=== PATIENT | female | born 1995 | race Caucasian/White ===

== ENCOUNTER 2023-04-17 07:18 | Day surgery (SDC) | payer OTHER ==
[2023-04-17] VITALS (347 sets, daily range): BP systolic 42–171; BP diastolic 25–148
[~2023-04-17] VITALS: Ht 162.6 cm; Wt 81.6 kg
[2023-04-17 09:12] LABS: ALBUMIN 4.5 g/dL (3.2-5.0); ALKALINE PHOSPHATASE 110 u/l (38-126); ANION GAP 12 (6-22 (CALC)); BILIRUBIN, TOTAL 0.6 mg/dL (0.02-1.3); BUN 11 mg/dL (7-17); BUN/CREATININE RATIO 18 (12-20 (CALC)); CARBON DIOXIDE 25 mmol/l (22-30); CHLORIDE 105 mmol/l (95-108); CREATININE 0.6 mg/dL (0.5-1.0); GFR FOR AFR.AMER. > 60 ML/MIN (>=60 (CALC)); GFR OTHER RACES > 60 ML/MIN (>=60 (CALC)); POTASSIUM 3.5 mmol/l (3.5-5.1); SGOT/AST 35 u/l (14-36); SODIUM 139 mmol/l (137-146); TOTAL PROTEIN 8.3 g/dL (6.3-8.2)
[2023-04-17 09:14] LABS: BASO% 0.8 % (0-3); EOS% 6.8 % (0-8); HEMATOCRIT 42.5 % (37.0-47.0); HEMOGLOBIN 13.9 g/dl (12.0-16.0); LYMPH% 39.7 % (15-41); MEAN CELL VOLUME 87.4 fL CALC (80.0-100.0); MEAN CORPUSCULAR HGB 28.6 pG CALC (26.0-32.0); MEAN CORPUSCULAR HGB CONC 32.7 g/dL CAL (32.0-36.0); MONO% 6.5 % (2-13); NEUT# 2.72 thou/uL (2.00-7.15); NEUT% 46.2 % (42-76); RED BLOOD COUNT 4.86 mill/uL (4.20-5.60); RED CELL DISTRI WIDTH 12.5 % (11.5-15.5)
[2023-04-17] MEDS ORDERED: NALTREXONE50 MG PO (15:18)
[2023-04-17] MEDS ORDERED: KLONOPIN2 MG PO (15:19)
[2023-04-17] MEDS ORDERED: CLONIDINE0.1 MG PO (15:19)
[2023-04-18 03:58] VITALS: BP 156/55
[2023-04-18 05:07] LABS: BASO% 0.2 % (0-3); HEMATOCRIT 39.3 % (37.0-47.0); HEMOGLOBIN 12.9 g/dl (12.0-16.0); IMMATURE GRANULOCYTES 0.7 % (0.0-5.0); LYMPH% 7.9 % (15-41); MEAN CELL VOLUME 86.2 fL CALC (80.0-100.0); MEAN CORPUSCULAR HGB 28.3 pG CALC (26.0-32.0); MEAN CORPUSCULAR HGB CONC 32.8 g/dL CAL (32.0-36.0); MONO% 0.6 % (2-13); NEUT# 7.91 thou/uL (2.00-7.15); NEUT% 90.6 % (42-76); RED BLOOD COUNT 4.56 mill/uL (4.20-5.60); RED CELL DISTRI WIDTH 12.5 % (11.5-15.5)
[2023-04-18 05:21] LABS: ALBUMIN 3.9 g/dL (3.2-5.0); ALKALINE PHOSPHATASE 110 u/l (38-126); ANION GAP 12 (6-22 (CALC)); BILIRUBIN, TOTAL 0.6 mg/dL (0.02-1.3); BUN 8 mg/dL (7-17); BUN/CREATININE RATIO 12 (12-20 (CALC)); CARBON DIOXIDE 23 mmol/l (22-30); CHLORIDE 105 mmol/l (95-108); CREATININE 0.6 mg/dL (0.5-1.0); GFR FOR AFR.AMER. > 60 ML/MIN (>=60 (CALC)); GFR OTHER RACES > 60 ML/MIN (>=60 (CALC)); MAGNESIUM 1.9 mg/dL (1.6-2.3); POTASSIUM 3.6 mmol/l (3.5-5.1); SGOT/AST 31 u/l (14-36); SODIUM 137 mmol/l (137-146); TOTAL PROTEIN 7.3 g/dL (6.3-8.2)
[2023-04-18 07:24] VITALS: BP 128/83
[2023-04-18 09:11] VITALS: BP 128/83
[2023-04-18] MEDS ORDERED: ZOFRAN4 MG/TAB PO (14:56)
== END 2023-04-18 17:15 | disposition home or self-care (01) | DRG 897 ==
LOC: ANR 07:18 → MS2 07:18 → ANR 08:00 → MS2 17:55 → ANR 04-18 17:15
PROVIDERS: ATTEND Anesthesiology
DX: F11.20 Opioid dependence, uncomplicated (principal)
CPT/HCPCS: J0131; J2354; J3475

== ENCOUNTER 2023-04-21 11:07 | Emergency (ER) | payer OTHER ==
[2023-04-21] VITALS (20 sets, daily range): BP systolic 113–136; BP diastolic 51–90
[~2023-04-21] VITALS: Ht 162.6 cm; Wt 81.8 kg
[~2023-04-21 11:07] MED LIST: CLONIDINE0.1 MG PO; KLONOPIN2 MG PO; NALTREXONE50 MG PO; ZOFRAN4 MG/TAB PO
[2023-04-21 13:57] LABS: BASO% 0.4 % (0-3); EOS% 0.3 % (0-8); HEMATOCRIT 39.7 % (37.0-47.0); HEMOGLOBIN 13.4 g/dl (12.0-16.0); IMMATURE GRANULOCYTES 0.1 % (0.0-5.0); LYMPH% 26.4 % (15-41); MEAN CELL VOLUME 86.3 fL CALC (80.0-100.0); MEAN CORPUSCULAR HGB 29.1 pG CALC (26.0-32.0); MEAN CORPUSCULAR HGB CONC 33.8 g/dL CAL (32.0-36.0); MONO% 5.7 % (2-13); NEUT# 6.03 thou/uL (2.00-7.15); NEUT% 67.1 % (42-76); RED BLOOD COUNT 4.6 mill/uL (4.20-5.60); RED CELL DISTRI WIDTH 12.5 % (11.5-15.5)
[2023-04-21 14:07] LABS: ALBUMIN 4.2 g/dL (3.2-5.0); ALKALINE PHOSPHATASE 98 u/l (38-126); ANION GAP 12 (6-22 (CALC)); BILIRUBIN, TOTAL 0.8 mg/dL (0.02-1.3); BUN 10 mg/dL (7-17); BUN/CREATININE RATIO 14 (12-20 (CALC)); CARBON DIOXIDE 23 mmol/l (22-30); CHLORIDE 111 mmol/l (95-108); CREATININE 0.7 mg/dL (0.5-1.0); GFR FOR AFR.AMER. > 60 ML/MIN (>=60 (CALC)); GFR OTHER RACES > 60 ML/MIN (>=60 (CALC)); LIPASE 287 u/l (23-300); POTASSIUM 3.3 mmol/l (3.5-5.1); SGOT/AST 70 u/l (14-36); SODIUM 143 mmol/l (137-146); TOTAL PROTEIN 7.7 g/dL (6.3-8.2)
[2023-04-21 16:33] LABS: URINE BILIRUBIN - DIPSTICK NEGATIVE (NEGATIVE); URINE COLOR YELLOW; URINE GLUCOSE - DIPSTICK NEGATIVE (NEGATIVE); URINE KETONE 15 mg/dL (NEGATIVE); URINE PROTEIN - DIPSTICK NEGATIVE (NEG-TRACE); URINE UROBILINOGEN - DIPSTICK 0.2 E.U./dL (0.2)
[2023-04-21 16:34] LABS: URINE BLOOD DIPSTICK NEGATIVE (NEGATIVE); URINE LEUK ESTERASE NEGATIVE (NEGATIVE); URINE NITRITE - DIPSTICK NEGATIVE (Negative)
== END 2023-04-21 18:08 | disposition home or self-care (01) | DRG 392 ==
LOC: ED 11:07
PROVIDERS: Family Medicine
PROC: 05H933Z Insertion of Infusion Device into Right Brachial Vein, Percutaneous Approach (ICD-10-PCS; principal; 2023-04-21)
DX: R11.2 Nausea with vomiting, unspecified (principal); K21.9 Gastro-esophageal reflux disease without esophagitis; F32.A Depression, unspecified; F17.210 Nicotine dependence, cigarettes, uncomplicated